=== PATIENT | female | born 1965 | race Caucasian/White ===

== ENCOUNTER 2020-03-06 20:30 | Emergency (ER) | payer OTHER, SELFPAY ==
--- NOTE | ~2020-03-06 | XR_ITS ---
EXAMINATION: XR chest 1V portable DATE: 03/06/2020 21:07 INDICATION: Shortness of breath. Hypoxia. TECHNIQUE: frontal view of the chest was obtained. COMPARISON: Chest radiograph dated 11/08/2016 FINDINGS: Small calcified nodule projecting over lateral right lower lung zone consistent with old granulomatou s disease. No other airspace opacities, pulmonary edema, pleural effusion or pneumothorax. The cardio mediastinal silhouette is normal. Visualized bones and soft tissues are unremarkable. IMPRESSION: 1. No acute cardiopulmonary disease. Reviewed, dictated and finalized at location A. OTION PRODUCER
--- NOTE | ~2020-03-06 | CT_ITS ---
EXAMINATION: CTA chest PE protocol DATE: 03/06/2020 22:55 INDICATION: Shortness of breath TECHNIQUE: Computed tomography angiography (CTA) of the chest was performed with 100 mL Omnipaque-350 intravenous contrast timed to evaluate the pulmonary arteries. Coronal maximum intensity projection 3D-reconstructions were created by the technologist. Automated exposure control and iterative reconst ruction technique were employed. Exam dose: 829.66 mGy-cm total exam DLP. COMPARISON: 03/06/2020 portable AP chest FINDINGS: There is diagnostic contrast enhancement of the pulmonary arteries and no evidence of pulmo nary embolism. No thoracic aortic aneurysm or dissection. No hilar or mediastinal mass lesion or lymphadenopathy. Heart size is within normal limits. No pericardial or pleural effusion. There is a focal wedge-shaped pleural-based small focal infiltrate in the anterolateral aspect of the right lower lobe and minimal scarring or atelectasis in the posterolateral left lung base. [id number] sliding hiatal hernia. Status post cholecystectomy. Included skeletal structures are unremarkable. IMPRESSION: No visible metabolism Small focal nonspecific infiltrate, right lower lobe and minimal scarring or atelectasis at the left lung base, left lower quadrant Reviewed, dictated and finalized at Location [facility]. Reviewed, dictated and finalized at location A. N TESTING MACHINE OPERATOR IMPRESSION: No visible metabolism Small focal nonspecific infiltrate, right lower lobe and minimal scarring or at electasis at the left lung base, left lower quadrant
[2020-03-06 20:33] VITALS: BP 144/95; PULSE 84; RESP 20; TEMP 36.1; O2SAT 100
[2020-03-06 20:40] VITALS: O2SAT 98
--- NOTE | 2020-03-06 20:57 | ECG_ITS ---
Measurements Intervals [place] Rate: 72 P: 40 SC: 173 QRS: -2 QRSD: 89 T: 10 QT: 386 QTc: 425 Interpretive Statements SINUS RHYTHM MINIMAL Q WAVES- HIGH LATERAL LEADS BORDERLINE R WAVE PROGRESSION, ANTERIOR LEADS BASELINE ARTIFACT- I, II, III, AVL, AVF BORDERLINE ECG Electronically Signed On 03-07-2020 7:11:24 FERMENTER OPERATOR by Marcelo Rai D.O.
[2020-03-06 21:30] LABS: Basophils Percent Auto 0.5 % (0.2-1.2); Eosinophils Absolute Auto 0.1 K/mm3 (0-0.3); Eosinophils Percent Auto 1.4 % (0-4.4); Hematocrit 46.2 % (37.0-47.0); Hemoglobin 14.9 g/dL (12.0-15.0); Immature Granulocyte Absolute 0.03 K/mm3 (0.00-0.031); Immature Granulocyte Percent A 0.5 % (0-0.5); Lymphocytes Absolute Auto 2.48 K/mm3 (0.9-3.2); Lymphocytes Percent Auto 44.4 % (18.3-44.2); Mean Corpuscular HGB Conc 32.3 g/dl (32-36); Mean Corpuscular Hemoglobin 27.7 pg (26-34); Mean Platelet Volume 9.4 fl (7.4-10.4); Monocytes Absolute Auto 0.5 K/mm3 (0.1-0.6); Monocytes Percent Auto 9.7 % (2.6-8.5); Neutrophils Absolute Auto 2.4 K/mm3 (1.3-6.7); Neutrophils Percent Auto 43.5 % (45.5-73.1); Platelet Count Result 353 k/mm3 (150-375); Red Blood Count 5.37 M/mm3 (4.2-5.4); Red Cell Distribution Width 14.6 % (11.5-14.5); White Blood Count 5.6 K/mm3 (4.5-10.0)
--- NOTE | 2020-03-06 21:33 | ED.GENADULT ---
HPI - General Adult General Chief complaint: Recheck/Abnormal Lab/Rx Stated complaint: Covid exposure, headache, low 02 Time Seen by Provider: 03/06/20 20:55 Source: patient Mode of arrival: ambulatory Limitations: no limitations History of Present Illness HPI narrative: Patient is a 55-year-old female complaining of low oxygen saturation at home and that she gets easily out of breath on exertion. Patient states that she was exposed to Covid 1 week ago. Patient denies any chest pain, dull pain, nausea, vomiting, diarrhea, fever or chills. Related Data Home Medications Medication Instructions Recorded Confirmed carvedilol 03/06/20 duloxetine mg PO 03/06/20 levothyroxine 03/06/20 lisinopril 03/06/20 meloxicam 03/06/20 omeprazole 03/06/20 rosuvastatin mg 03/06/20 03/06/20 Allergies Allergy/AdvReac Type Severity Reaction Status Date / Time latex Allergy Rash Verified 03/06/20 20:36 Review of Systems Review of Systems: All systems reviewed & are unremarkable except as noted in HPI and below Constitutional: Constitutional: Denies body ache(s), Denies chills, Denies excessive sweating, Denies fatigue, Denies fever(s), Denies headache(s), Denies lethargy, Denies malaise, Denies weakness and Denies weight loss Eyes: Eyes: Denies blurry vision, Denies change in vision and Denies loss of vision ENT: Denies dizziness, Denies ear discharge, Denies headache(s), Denies lip swelling, Denies epistaxis, Denies nasal congestion, Denies neck pain, Denies throat swelling and Denies tongue swelling Cardiovascular: Cardiovascular: Denies chest pain, Denies chest pain at rest, Denies chest pain with activity, Denies diaphoresis, Denies rapid heart rate, Denies edema, Denies irregular heart rhythm, Denies lightheadedness and Denies palpitations Respiratory: Respiratory: Denies chest congestion, Denies cough and Denies hemoptysis Gastrointestinal: Gastrointestinal: Denies abdominal pain, Denies melena, Denies hematochezia, Denies diarrhea, Denies nausea, Denies vomiting and Denies hematemesis Musculoskeletal: Musculoskeletal: Denies abnormal gait, Denies deformity, Denies joint swelling, Denies limited range of motion, Denies neck pain and Denies numbness Neurologic: Denies Abnormal speech present, Denies abnormal gait, Denies confusion, Denies dizziness, Denies headache(s), Denies focal weakness, Denies loss of vision, Denies numbness, Denies Other visual disturbances, Denies Sensory deficit (Neuro) and Denies weakness Psychiatric: Psychiatric: Denies confusion, Denies depression, Denies auditory hallucinations, Denies homicidal ideation and Denies suicidal ideation Endocrine: Endocrine: Denies cold intolerance, Denies excessive sweating, Denies fatigue, Denies heat intolerance and Denies palpitations Hematologic/Lymphatic: Hematologic/Lymphatic: Denies easy bleeding and Denies easy bruising Allergic/Immunologic: Allergic/Immunologic: Denies lip swelling, Denies throat swelling and Denies tongue swelling PMFSH Social History Social History Gender identity (if verbalized by the patient): Female Exam Const: General: cooperative, healthy appearing, comfortable, no acute distress, well developed, alert and awake; No confusion Orientation/consciousness: oriented to person, oriented to place, oriented to time, patient oriented x3 and No confusion Limitations: no limitations HENMT: Head: normal to inspection, normocephalic and atraumatic Ears: hearing grossly normal bilaterally, TM normal on the right and TM normal on the left General nose exam: Normal external nose present, Normal nares present and No nasal discharge present Face and sinus: normal facial exam Mouth: Yes Normal oral and palatal mucosa present, Yes lip normal, Yes tongue normal and Yes oropharynx normal Throat: posterior oropharynx normal, tonsils normal and uvula midline Eyes: General: appearance normal, both eyes and all related structures Pupils: Equal, ro
[2020-03-06 21:35] VITALS: PULSE 85; RESP 17; O2SAT 98
[2020-03-06 21:51] LABS: Alanine Aminotransferase 39 U/L (4-35); Albumin Level 4.4 g/dL (3.5-5.1); Alkaline Phosphatase 73 U/L (38-126); Anion Gap 11 mmol/L (8-16); Aspartate Amino Transferase 38 U/L (14-36); Bilirubin,Total 0.3 mg/dL (0.2-1.3); Blood Urea Nitrogen 20 mg/dL (7-17); Calcium 9.1 mg/dL (8.4-10.2); Carbon Dioxide 30 mmol/L (22-30); Chloride 101 mmol/L (98-107); Estimated CRCL calculation 75 ml/min; Estimated Glomerular Filt Rate > 60; Glucose 172 mg/dL (65-105); Sodium 142 mmol/L (137-145)
[2020-03-06 22:03] LABS: NT Pro B Type Natriuretic Pept 22 PG/ML (5-100); Troponin I < 0.012 ng/mL (0.000-0.034)
[2020-03-06 22:09] LABS: D Dimer 0.54 ug/mL (<0.48)
[2020-03-06 22:32] VITALS: BP 117/64; PULSE 72; RESP 18; O2SAT 98
--- NOTE | 2020-03-06 22:40 | PC.NURSE ---
Patient being taken to CT at this time.
[2020-03-06 23:53] VITALS: BP 115/64; PULSE 75; RESP 17; O2SAT 95
== END 2020-03-06 23:55 | disposition home or self-care (01) ==
PROVIDERS: Emergency Provider Emergency Medicine; PCP Physician Assistant
DX: R06.00 Dyspnea, unspecified (principal); Z20.828 Contact with and (suspected) exposure to other viral communicable diseases; R94.31 Abnormal electrocardiogram [ECG] [EKG]
CPT/HCPCS: 36415; 71045; 71275; 80053; 83880; 84484; 85025; 85380; 93005; 99284; Q9967

== ENCOUNTER 2020-03-29 15:13 | Emergency (ER) | payer OTHER, SELFPAY ==
--- NOTE | ~2020-03-29 | CT_ITS ---
EXAMINATION: CTA chest PE protocol DATE: 03/29/2020 18:17 INDICATION: Left back pain TECHNIQUE: Computed tomography angiography (CTA) of the chest was performed with 100 mL Omnipaque-350 intravenous contrast timed to evaluate the pulmonary arteries. Coronal maximum intensity projection 3D-reconstructions were created by the technologist. Automated exposure control and iterative reconst ruction technique were employed. Exam dose: 778.92 mGy-cm total exam DLP. COMPARISON: 03/06/2020 CT pulmonary scan 03/29/2020 portable AP chest FINDINGS: There is diagnostic contrast enhancement of the pulmonary arteries and no evidence of pulmo nary embolism. No thoracic aortic aneurysm or dissection. Normal heart size. No pericardial or pleural effusion. Mild nonspecific bilateral hilar oriana prominence, right greater than left. This is likely reactive, secondary to scattered patchy bilateral infiltrates, including right upper and lower lobes, to a less er extent lingula and left lower lobe. Moderate moderate sliding hiatal hernia. Normal morphology of the adrenal glands. Included upper abdo robyn structures are unremarkable other than cholecystectomy. IMPRESSION: Mild scattered patchy bilateral pulmonary infiltrates, suggesting pneumonia, with probab le mild bilateral reactive hilar lymph node prominence No evidence of pulmonary embolism Reviewed, dictated and finalized at [facility]. Reviewed, dictated and finalized at location A. WORKS INSPECTOR IMPRESSION: Mild scattered patchy bilateral pulmonary infiltrates, suggesting pneumonia, with probable mild bilateral reactive hilar lymph node prominence No evidence of pulmonary embolism
--- NOTE | ~2020-03-29 | XR_ITS ---
EXAMINATION: XR chest 1V portable INDICATION: Left shoulder pain, shortness of breath, history of COVID 19 TECHNIQUE: Portable AP chest at 1638 hours COMPARISON: 03/06/2020 FINDINGS: The lungs are free of acute opacities. There is no pleural effusion or pneumothorax. The ca rdiomediastinal silhouette is normal. The visualized osseous structures are unremarkable. IMPRESSION: 1. No acute cardiopulmonary abnormality. Reviewed, dictated and finalized at location A. O STATION ENGINEER
--- NOTE | 2020-03-29 15:44 | ECG_ITS ---
Measurements Intervals [place] Rate: 90 P: 38 LA: 174 QRS: -15 QRSD: 92 T: 9 QT: 346 QTc: 425 Interpretive Statements SINUS RHYTHM LOW QRS VOLTAGE IN PRECORDIAL LEADS BORDERLINE R WAVE PROGRESSION, ANTERIOR LEADS BORDERLINE T WAVE ABNORMALITY- ANT/INF LEADS BORDERLINE ECG Electronically Signed On 03-29-2020 15:58:12 PARKING LOT SPOTTER by Marcelo Rai D.O.
[2020-03-29 16:10] VITALS: BP 146/110; PULSE 95; RESP 18; TEMP 35.7; O2SAT 97
[2020-03-29 16:26] LABS: Basophils Absolute Auto 0.1 K/mm3 (0.0-0.1); Basophils Percent Auto 0.6 % (0.2-1.2); Eosinophils Absolute Auto 0.1 K/mm3 (0-0.3); Eosinophils Percent Auto 0.9 % (0-4.4); Hematocrit 44.8 % (37.0-47.0); Hemoglobin 14.8 g/dL (12.0-15.0); Immature Granulocyte Absolute 0.07 K/mm3 (0.00-0.031); Immature Granulocyte Percent A 0.7 % (0-0.5); Lymphocytes Absolute Auto 2.77 K/mm3 (0.9-3.2); Lymphocytes Percent Auto 26.3 % (18.3-44.2); Mean Corpuscular Hemoglobin 28.1 pg (26-34); Mean Corpuscular Volume 85.2 fl (80-100); Mean Platelet Volume 9.4 fl (7.4-10.4); Monocytes Percent Auto 9.7 % (2.6-8.5); Neutrophils Absolute Auto 6.5 K/mm3 (1.3-6.7); Neutrophils Percent Auto 61.8 % (45.5-73.1); Platelet Count Result 391 k/mm3 (150-375); Red Blood Count 5.26 M/mm3 (4.2-5.4); Red Cell Distribution Width 14.3 % (11.5-14.5); White Blood Count 10.6 K/mm3 (4.5-10.0)
[2020-03-29 16:34] LABS: Alanine Aminotransferase 45 U/L (4-35); Albumin Level 4.3 g/dL (3.5-5.1); Alkaline Phosphatase 76 U/L (38-126); Anion Gap 7 mmol/L (8-16); Aspartate Amino Transferase 36 U/L (14-36); Bilirubin,Total 0.4 mg/dL (0.2-1.3); Blood Urea Nitrogen 21 mg/dL (7-17); Calcium 9.5 mg/dL (8.4-10.2); Carbon Dioxide 31 mmol/L (22-30); Chloride 102 mmol/L (98-107); Estimated CRCL calculation 75 ml/min; Estimated Glomerular Filt Rate > 60; Glucose 88 mg/dL (65-105); Potassium 4.1 mmol/L (3.4-5.0); Sodium 140 mmol/L (137-145)
[2020-03-29 16:46] LABS: Troponin I < 0.012 ng/mL (0.000-0.034)
--- NOTE | 2020-03-29 17:17 | ED.GENADULT ---
HPI - General Adult General Chief complaint: Extremity Injury, Upper Stated complaint: L SHOULDER BLADE PAIN, COVID+ Time Seen by Provider: 03/29/20 16:14 Source: patient History of Present Illness HPI narrative: Patient is a 55 y/o female complaining of left upper back pain starting approximately 5 days ago. She describes her pain as aching and rates it as 4/10. There is no alleviating or exacerbating factor. She has some mild cough. She denies any fever, chest pain or SOB. Of note, she tested positive for COVID on 03/15/20. She states that she is actually feeling better since she was initially diagnosed with COVID. Related Data Home Medications Medication Instructions Recorded Confirmed carvedilol 03/06/20 duloxetine mg PO 03/06/20 levothyroxine 03/06/20 lisinopril 03/06/20 meloxicam 03/06/20 omeprazole 03/06/20 rosuvastatin mg 03/06/20 03/06/20 Allergies Allergy/AdvReac Type Severity Reaction Status Date / Time latex Allergy Rash Verified 03/29/20 17:44 Review of Systems Constitutional: Constitutional: Denies chills, Denies fever(s), Denies headache(s) and Denies weakness Eyes: Eyes: Denies blurry vision ENT: Denies headache(s) and Denies neck pain Cardiovascular: Cardiovascular: Denies chest pain and Denies dyspnea Respiratory: Respiratory: Reports cough and Denies dyspnea Gastrointestinal: Gastrointestinal: Denies abdominal pain, Denies diarrhea, Denies nausea and Denies vomiting Genitourinary: Genitourinary: Denies hematuria and Denies dysuria Musculoskeletal: Musculoskeletal: Reports back pain and Denies neck pain Neurologic: Denies headache(s) and Denies weakness [facility] Social History Social History Gender identity (if verbalized by the patient): Female Exam Const: General: no acute distress and well developed Orientation/consciousness: oriented to person, oriented to place, oriented to time and patient oriented x3 HENMT: Head: normocephalic Ears: external ears normal General nose exam: Normal external nose present Eyes: General: appearance normal, both eyes and all related structures Conjunctivae: conjunctivae normal Neck: Neck: normal visual inspection and full ROM Chest: Chest palpation & inspection: normal inspection of the chest and no tenderness Resp: Effort & Inspection: normal respiratory effort Auscultation: clear to auscultation bilaterally Cardio: Rate: regular rate Rhythm: regular rhythm GI: GI Palp: No abdominal tenderness and Yes Soft to palpation Skin: General skin exam: normal color and turgor normal Neuro: General: oriented to person, oriented to place, oriented to time and patient oriented x3 Cognition (Neuro): normal cognition Extrem: General: normal to inspection, full ROM and no pedal edema Psych: Appearance: grossly normal Mental Status: mental status grossly normal Affect: normal affect Course Vital Signs Vital signs: Vital Signs Temperature 35.7 C L 03/29/20 16:10 Pulse Rate 95 03/29/20 16:10 Respiratory Rate 18 03/29/20 16:10 Blood Pressure 146/110 H 03/29/20 16:10 Pulse Oximetry 97 03/29/20 16:10 Temperature 35.7 C L 03/29/20 16:10 Pulse Rate 101 H 03/29/20 20:02 Respiratory Rate 19 03/29/20 20:02 Blood Pressure 109/82 03/29/20 20:02 Pulse Oximetry 96 03/29/20 20:02 Medical Decision Making Vital Signs Vital Signs: Vital Signs Temperature 35.7 C L 03/29/20 16:10 Pulse Rate 95 03/29/20 16:10 Respiratory Rate 18 03/29/20 16:10 Blood Pressure 146/110 H 03/29/20 16:10 Pulse Oximetry 97 03/29/20 16:10 Temperature 35.7 C L 03/29/20 16:10 Pulse Rate 101 H 03/29/20 20:02 Respiratory Rate 19 03/29/20 20:02 Blood Pressure 109/82 03/29/20 20:02 Pulse Oximetry 96 03/29/20 20:02 Lab Data Result diagrams: 03/29/20 16:04 03/29/20 16:04 Labs: Lab Results 03/29/20 03/29/20 03/29/20
[2020-03-29 19:38] VITALS: BP 132/89; PULSE 97; RESP 20; RESP 21; O2SAT 97; O2SAT 98
[2020-03-29 20:01] LABS: Troponin I < 0.012 ng/mL (0.000-0.034)
[2020-03-29 20:02] VITALS: BP 109/82; PULSE 101; RESP 19; O2SAT 96
== END 2020-03-29 20:45 | disposition home or self-care (01) ==
PROVIDERS: Emergency Provider Emergency Medicine; PCP Physician Assistant
DX: M54.6 Pain in thoracic spine (principal); U07.1 COVID-19; J12.89 Other viral pneumonia
CPT/HCPCS: 36415; 71045; 71275; 80053; 84484; 85025; 85380; 93005; 99284; Q9967

== ENCOUNTER → 2020-06-10 08:21 | Outpatient (CLI) | payer OTHER, SELFPAY ==
--- NOTE | ~2020-06-10 | CT_ITS ---
EXAMINATION: CT diagnostic chest wo con DATE: 06/10/2020 08:42 INDICATION: Shortness of breath with exertion, history of COVID 19 TECHNIQUE: Computed tomography (CT) of the chest was performed without intravenous contrast. The dose -length product (DLP) was 694.15 mGy-cm. Automated exposure control and iterative reconstruction tech [employer] were employed. COMPARISON: 03/29/2020 FINDINGS: The lungs are free of acute opacities. Previously identified patchy groundglass opacities h ave resolved, consistent with resolving pneumonia. There is no pleural effusion or pneumothorax. Ther e is mild emphysema. No pathologically enlarged thoracic lymph nodes are identified. The heart size i s normal. A small sliding hiatal hernia is noted. Geographic areas of low attenuation in the liver li vikas reflect hepatic steatosis. The gallbladder is surgically absent. There is moderate thoracic spon dylosis. IMPRESSION: 1. No acute cardiopulmonary abnormality. Resolved pneumonia. Reviewed, dictated and finalized at location A. MENT REVIEWER
== END ==
DX: R06.00 Dyspnea, unspecified (principal); R06.89 Other abnormalities of breathing
CPT/HCPCS: 71250

== ENCOUNTER → 2022-01-03 07:18 | Outpatient (CLI) | payer OTHER, SELFPAY ==
--- NOTE | ~2022-01-03 | XR_ITS ---
EXAMINATION: XR chest 2V 01/03/2022 07:45 INDICATION: Chest pain PROCEDURE: 2 view chest COMPARISON: 03/29/2020 FINDINGS: The lungs are clear. The cardiomediastinal silhouette is within normal limits. There are no pleural effusions. There is no pneumothorax suspected. IMPRESSION: 1: NO ACUTE CARDIOPULMONARY DISEASE. Reviewed, dictated and finalized at location B.
--- NOTE | ~2022-01-03 | XR_ITS ---
XR knee RT 3V 01/03/2022 07:46 Indication: Right knee pain after recent fall Procedure: 3 views right knee Comparison: No prior studies for comparison. Findings: No fracture, subluxation or dislocation. Mild osteoarthritis. No significant joint effusion . No foreign bodies. Impression: 1: No acute fracture. Reviewed, dictated and finalized at location B. Impression: 1: No acute fracture.
--- NOTE | ~2022-01-03 | XR_ITS ---
EXAMINATION: XR facial bones min 3V DATE: 01/03/2022 07:46 INDICATION: Left cheek and orbital pain and injury. TECHNIQUE: 5 views of the facial bones were obtained. COMPARISON: None. FINDINGS: There is leftward deviation of the nasal septum. No fracture. IMPRESSION: 1. No fracture. Reviewed, dictated and finalized at location A. IMPRESSION: 1. No fracture.
== END ==
PROVIDERS: PCP Family Medicine; Visit Provider Family Medicine
DX: R07.9 Chest pain, unspecified (principal); R51.9 Headache, unspecified
CPT/HCPCS: 70150; 71046; 73562

== ENCOUNTER → 2023-02-09 08:46 | Outpatient (CLI) | payer OTHER, SELFPAY ==
--- NOTE | ~2023-02-09 | XR_ITS ---
EXAMINATION: XR shoulder LT min 2V DATE: 02/09/2023 09:29 INDICATION: Left shoulder pain. TECHNIQUE: 4 views of left shoulder were obtained. COMPARISON: Left shoulder radiograph 09/22/2015 FINDINGS: Bone alignment is normal. No fracture. Glenohumeral joint is normal. There is moderate acro mioclavicular joint osteoarthritis. IMPRESSION: 1. Moderate left acromioclavicular joint osteoarthritis. Reviewed, dictated and finalized at location A. WORKER
== END ==
PROVIDERS: PCP Physician Assistant; Visit Provider Physician Assistant
DX: M25.512 Pain in left shoulder (principal); M19.012 Primary osteoarthritis, left shoulder
CPT/HCPCS: 73030

== ENCOUNTER → 2023-03-19 11:10 | Outpatient (CLI) | payer OTHER, SELFPAY ==
--- NOTE | ~2023-03-19 | MM_ITS ---
EXAMINATION: MM screening kaylen BI w mar HISTORY: Screening mammogram TECHNIQUE: Craniocaudal and mediolateral oblique 3-D tomosynthesis images were obtained and synthetic 2-D images were generated. CAD analysis was submitted and interpreted. COMPARISON: July 15, 2017 diagnostic bilateral mammogram and limited left breast ultrasound examinat ion, reported benign Limited left breast ultrasound, reported negative August 15, 2016 bilateral diagnostic mammogram, reported negative BREAST PARENCHYMAL COMPOSITION: The breasts are almost entirely fatty. FINDINGS: There is no evidence of suspicious mass, calcification, or architectural distortion to sugg est malignancy in either breast. There has been no suspicious interval change. IMPRESSION: 1. No mammographic evidence of malignancy. 2. Recommend routine screening mammography in one year. BI-RADS Category 1: Negative Reviewed, dictated and finalized at location A. EN SHADE HARDWARE INSTALLER
== END ==
PROVIDERS: PCP Physician Assistant; Visit Provider Physician Assistant
DX: Z12.31 Encounter for screening mammogram for malignant neoplasm of breast (principal)
CPT/HCPCS: 77063; 77067

== ENCOUNTER 2023-09-19 07:40 | Outpatient (CLI) | payer OTHER, SELFPAY ==
--- NOTE | ~2023-09-19 | US_ITS ---
EXAMINATION: US thyroid DATE: 09/19/2023 08:16 INDICATION: Nontoxic single thyroid nodule. TECHNIQUE: Multiple ultrasound images of the thyroid were obtained. COMPARISON: Thyroid ultrasound 02/06/2019 FINDINGS: The right thyroid lobe measures 5.0 x 1.7 x 1.8 cm. The left thyroid lobe measures 4.8 x 1 0.4, 0.3 cm. In the right thyroid lobe, there is a 5 mm solid, hypoechoic, wider than tall nodule with smooth margin without echogenic foci (TI-RADS TR4). In the right thyroid lobe, there is a 12 mm solid, hypo echoic, wider than tall nodule with smooth margin without echogenic foci (TR4), decreased in size fro m 02/06/19. In the left thyroid lobe, there is a 13 mm solid, hypoechoic, wider than tall nodule with smooth margin without echogenic foci (TR4). In the left thyroid lobe, there is a 14 mm solid, hypoech oic, wider than tall nodule with smooth margin without echogenic foci (TR4). There are multiple subce ntimeter nodules. IMPRESSION: 1. Multinodular goiter. Thyroid ultrasound is recommended in one year. Reviewed, dictated and finalized at location A.
== END 2023-09-19 07:41 ==
LOC: MICIMG 07:42
PROVIDERS: PCP Emergency Medicine; Visit Provider Emergency Medicine
DX: E04.2 Nontoxic multinodular goiter (principal)
CPT/HCPCS: 76536

== ENCOUNTER 2023-11-19 07:22 | Outpatient (CLI) | payer OTHER, SELFPAY ==
--- NOTE | ~2023-11-19 | XR_ITS ---
XR hip BI wo pelvis Ordering provider: Lizbeth Iqbal, History: . Pain R hip . Comparison: None. FINDINGS: BONES: No acute fracture or dislocation. HIP JOINT SPACES: Bilateral hip osteoarthritic changes. SACROILIAC JOINT SPACES/LUMBAR SPINE: The sacroiliac joint spaces are normal. Mild degenerative childress es of the visualized lower lumbar spine. PUBIC SYMPHYSIS: Normal. SOFT TISSUES: Normal. IMPRESSION: No acute osseous abnormality of the bilateral hips and pelvis. Bilateral hip moderate osteoarthritic changes. Reviewed, dictated and finalized at location A.
--- NOTE | ~2023-11-19 | XR_ITS ---
3 VIEWS LUMBAR SPINE Ordering provider: Lizbeth Iqbal, History: . Low back pain . Comparison: December 13, 2014 FINDINGS: VERTEBRAL BODIES: No visible fracture or subluxation. Degenerative changes of the spine. DISK SPACES: Normal. Facet joint disease at the level of L4-L5 and L5-S1. SOFT TISSUES: Normal. IMPRESSION: No acute osseous abnormality lumbar spine. Reviewed, dictated and finalized at location A.
== END 2023-11-19 07:23 ==
PROVIDERS: PCP Emergency Medicine; Visit Provider Emergency Medicine
DX: M54.50 Low back pain, unspecified (principal); M25.551 Pain in right hip; M16.0 Bilateral primary osteoarthritis of hip
CPT/HCPCS: 72100; 73521

== ENCOUNTER 2025-03-11 06:45 | Outpatient (CLI) | payer OTHER, SELFPAY ==
--- NOTE | ~2025-03-11 | MR_ITS ---
EXAM/PROCEDURE: MR elbow LT wo con HISTORY: S59.902A - Unspecified injury of left elbow, initial enco... COMPARISON: Plain films from January [id number] TECHNIQUE: Multiplanar left elbow MRI without contrast performed. FINDINGS: No acute fracture subluxation or dislocation present. Mild scattered osteoarthritic appearing degenerative changes with mild areas of cartilaginous thinning noted. Trace joint effusion. Remote appearing avulsion injury seen at the lateral epicondylar attachment of the common extensor tendon. The tendon does not appear clearly detached or retracted but is significantly thickened and heterogeneous and hyperintense in signal at its bony attachment. There is also a 4.5 x 2.0 x 3.0 mm bony fragment along the radial margin of the proximal portion of the tendon as seen on image 11 series 6, and image 13 series 5. The radial collateral ligament appears thickened but not fully disrupted or clearly torn. The lateral ulnar collateral ligament appears intact. The remaining myotendinous structures appear intact. IMPRESSION: 1. Chronic appearing avulsion of the common extensor tendon with abnormally thickened appearance of the proximal attachment immediately adjacent to or contiguous with the lateral epicondyles; a 4.5 x 2.0 x 3.0 mm bony fragment is also noted likely representing a bone fragment. The tendon does not appear significantly displaced or retracted. 2. Partial-thickness injury or tear involving the radial ulnar collateral ligament. 3. Otherwise normal-appearing elbow. Reviewed, dictated and finalized at location A. RER IMPRESSION: 1. Chronic appearing avulsion of the common extensor tendon with abnormally thi ckened appearance of the proximal attachment immediately adjacent to or contigu ous with the lateral epicondyles; a 4.5 x 2.0 x 3.0 mm bony fragment is also no [place] likely representing a bone fragment. The tendon does not appear significant ly displaced or retracted. 2. Partial-thickness injury or tear involving the radial ulnar collateral ligam ent. 3. Otherwise normal-appearing elbow.
== END 2025-03-11 06:46 | disposition home or self-care (01) ==
PROVIDERS: PCP Emergency Medicine; Visit Provider Nurse Practitioner Family
DX: M77.12 Lateral epicondylitis, left elbow (principal); M62.2 Nontraumatic ischemic infarction of muscle; M66.242 Spontaneous rupture of extensor tendons, left hand; Z18.89 Other specified retained foreign body fragments; S53.22XA Traumatic rupture of left radial collateral ligament, initial encounter; S53.442A Ulnar collateral ligament sprain of left elbow, initial encounter; X58.XXXA Exposure to other specified factors, initial encounter
CPT/HCPCS: 73221